=== PATIENT | female | born 2000 | race Caucasian/White ===

== ENCOUNTER 2022-04-07 22:29 | Emergency (ER) | payer OTHER ==
[~2022-04-07] VITALS: Ht 160 cm; Wt 101.2 kg
[2022-04-08] MEDS ORDERED: predniSONE 20 MG TAB PO ONE (04:55)
[2022-04-08] MEDS ORDERED: ALBUTEROL 90 MCG/ACT 8GM HFA INHALER INH ONE (04:55)
[2022-04-08] MEDS ORDERED: PRED20TA PO (05:03)
[2022-04-08 05:12] VITALS: BP 121/78
== END 2022-04-08 05:18 | disposition home or self-care (01) ==
LOC: M ED 22:29
DX: J20.9 Acute bronchitis, unspecified (principal); J06.9 Acute upper respiratory infection, unspecified; F32.A Depression, unspecified; F41.9 Anxiety disorder, unspecified
CPT/HCPCS: 87486; 87581; 87633; 87798; 99284; J7512